=== PATIENT | male | born 2005 | race Caucasian/White ===

== ENCOUNTER 2024-01-07 06:56 | Outpatient (CLI) | payer BC ==
--- NOTE | 2024-01-07 14:09 | Ultrasound Report ---
PROCEDURE: Pelvic Limited INDICATIONS: INGUINAL HERNIA TECHNIQUE: Real-time transabdominal scanning was performed of the right inguinal region pre and post Valsalva ma neuver. COMPARISON: None. FINDINGS: Pre and post Valsalva maneuver, there was no visualization of intraperitoneal fat or bowel contents i n the right inguinal region. IMPRESSION: No sonographic evidence of a right inguinal hernia. Reviewed by: Eder Messina MD on 01/07/2024 2:08 PM PDT Approved by: Eder Messina MD on 01/07/2024 2:08 PM PDT Station ID: [id number]
== END 2024-01-07 06:57 | disposition home or self-care (01) ==
LOC: DI 06:56
PROVIDERS: ATTEND Physician Assistant
DX: K40.90 Unilateral inguinal hernia, without obstruction or gangrene, not specified as recurrent (principal)